=== PATIENT | male | born 2000 | race Caucasian/White ===

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

== ENCOUNTER 2023-09-14 17:45 | Emergency (ER) | payer OTHER, SELFPAY ==
[2023-09-14 17:52] VITALS: BP 152/93; PULSE 80; RESP 16; TEMP 36.7; O2SAT 100; BMI 24.6
--- NOTE | 2023-09-14 18:15 | DI.CT.S_ITS ---
PROCEDURE: CT HEAD/BRAIN WO CON INDICATIONS: headache with blurred vision, nausea TECHNIQUE: Noncontrast 4.5 mm thick angled axial sections acquired from the foramen magnum to the vertex, with coronal and sagittal reformats. For radiation dose reduction, the following was used: automated exposure control, adjustment of mA and/or kV according to patient size. COMPARISON: [facility], MR, MR ANGIO HEAD WO CON, 12/05/2021, 19:36. FINDINGS: Image quality: Diagnostic. CSF spaces: Basal cisterns are patent. No extra-axial fluid collections. Ventricles are normal in size and shape. Brain: No midline shift. No intracranial masses or hemorrhage. Anderson-white matter interface is normal. Skull and face: Calvarium and visualized facial bones are intact, without suspicious lesions. Sinuses: Visualized sinuses and mastoids are clear. IMPRESSION: No acute intracranial pathology. Dictated by: Dimas Lawrence M.D. on 09/14/2023 at 18:35 Approved by: Dimas Lawrence M.D. on 09/14/2023 at 18:35
--- NOTE | 2023-09-14 19:17 | ED_ITS ---
HPI - Headache General Chief Complaint: Headache Stated Complaint: Blurred vision, headache, nausea Time Seen by Provider: 09/14/23 18:14 Mode of arrival: Wheelchair History of Present Illness HPI Narrative: 22-year-old male with history of migraine headaches presents for headache. Started approximately 2pm and worsened in intensity. Tried to take ibuprofen but vomited. States he came in today because he was never had a headache like this. It blurred his vision and caused him concern. Patient states he has a history of migraines as a kid but the blurred vision is a new pattern for him. Has not seen his primary care doctor for headaches recently, however computer shows that patient was seen by Dr. Calderon in 2021 and underwent MRA imaging that was normal. Related Data Previous Rx's Medication Instructions Recorded sumatriptan succinate 25 mg tablet See Rx Instructions PO .COMPLEX 11/26/21 #14 tabs Allergies Allergy/AdvReac Type Severity Reaction Status Date / Time No Known Drug Allergies Allergy Verified 09/14/23 17:56 Review of Systems Review of Systems Narrative: Negative except as noted above Patient History Medical History Visual disturbance Headache Acne Migraine Redundant prepuce and phimosis (08/05/17) Functional heart murmur (08/05/17) Surgical History Retinal tear Family History Grandfather History of heart disease Grandfather Stroke Grandmother Cancer Diabetes mellitus History of heart disease Hyperlipidemia Hypertension Social History Smoking Status: Never smoker Smoking Status: Never smoker Substance Use Type: does not use Exam Initial Vital Signs Initial Vital Signs: Vital Signs Temperature 98.0 F 09/14/23 17:52 Pulse Rate 80 09/14/23 17:52 Respiratory Rate 16 09/14/23 17:52 Blood Pressure 152/93 H 09/14/23 17:52 Pulse Oximetry 100 09/14/23 17:52 Oxygen Delivery Method Room Air 09/14/23 17:52 Const: Awake, alert, uncomfortable, nontoxic Cardiac: regular rate, regular rhythm RESP: unlabored, clear bilaterally, no wheezing GI: Soft, nontender, nondistended, no rebound, no guarding Skin: Warm, Dry, intact, no rashes Neuro: AO x3, CN II-XII grossly intact, moves all extremities Course Orders Ordered: ED Orders 09/14/23 18:15 CT head/brain wo con Stat Discontinued Medications Acetaminophen (Acetaminophen 325 Mg Tablet) 975 mg PO NOW ONE Stop: 09/14/23 19:17 Diphenhydramine HCl (Diphenhydramine 50 Mg/Ml Vial) 50 mg IV NOW ONE Stop: 09/14/23 19:17 Sodium Chloride (Normal Saline 0.9%) 1,000 mls @ 1,000 mls/hr IV BOLUS ONE Stop: 09/14/23 20:15 Ketorolac Tromethamine (Ketorolac 30 Mg/Ml Vial) 15 mg IV NOW ONE Stop: 09/14/23 19:17 Metoclopramide HCl (Metoclopramide 10 Mg/2 Ml Inj) 10 mg IV NOW ONE Stop: 09/14/23 19:17 Vital Signs Vital signs: Vital Signs - 8 hr 09/14/23 17:52 Temperature 98.0 F Pulse Rate 80 Respiratory Rate 16 Blood Pressure 152/93 H Pulse Oximetry 100 Oxygen Delivery Method Room Air MDM - Headache Differential Diagnosis Differential diagnosis: Likely migraine, tension headache and subarachnoid hemorrhage Imaging Data CT scan - head: Radiologist's Impression: PROCEDURE: CT HEAD/BRAIN WO CON INDICATIONS: headache with blurred vision, nausea TECHNIQUE: Noncontrast 4.5 mm thick angled axial sections acquired from the foramen magnum to the vertex, with coronal and sagittal reformats. For radiation dose reduction, the following was used: automated exposure control, adjustment of mA and/or kV according to patient size. COMPARISON: [facility], MR, MR ANGIO HEAD WO CON, 12/05/2021, 19:36. FINDINGS: Image quality: Diagnostic. CSF spaces: Basal cisterns are patent. No extra-axial fluid collections. Ventricles are normal in size and shape. Brain: No midline shift. No intracranial masses or hemorrhage. Anderson-white matter interface is normal. Skull and face: Calvarium and visualized facial bones are intact, without suspicious lesions. Sinuses: Visualized sinuses and mastoids are clear. IMPRESSION: No acute intracranial pathology. Dictated by: Dimas Lawrence M.D. on 09/14/2023 at 18:35 Approved by: Dimas Lawrence M.D. on 09/14/2023 at 18:35 [facility] Narrative Medical decision making narrative: Patient with history of migraine headaches presenting for headache with change in migraine pattern. States that he was never had blurred vision previously. He was neurologically intact, able to ambulate without ataxia, no focal neurologic deficits. CT head negative for acute findings. Patient offered a migraine cocktail, however he refused, stating that as long as he knew that his brain was normal he would prefer to go home and recover there. He reports concern that if he has worsening migraines with blurred vision that it may impact his ability to work. History shows that patient was previously prescribed sumatriptan by his primary care doctor, however he states he never took this medication. Patient offered nausea medication if he has a migraine and can not keep medications down due to vomiting, however he declined. Patient states that he will follow up with his primary care doctor as well as an eye doctor. Discharge Plan Departure Patient Disposition: Home Clinical Impression: Migraine Instructions: DI for Migraine Activity Restrictions/Additional Instructions: You can take Tylenol and Motrin as needed for headache. Follow up with Dr. Lyon and the eye doctor as needed Prescriptions: No Action sumatriptan succinate 25 mg tablet See Rx Instructions PO .COMPLEX Qty: 14 0RF Rx Instructions: take 1 tab at onset of headache; if no relief may repeat 1 tab after at least 2 hrs; max = 4 tabs/24 hr PO Referrals: Alex Calderon MD [Primary Care Provider] - Stand Alone Forms: Patient Portal/API
== END 2023-09-14 20:11 | disposition home or self-care (01) ==
PROVIDERS: Emergency Provider Emergency Medicine; PCP Family Medicine
DX: G43.909 Migraine, unspecified, not intractable, without status migrainosus (principal); H53.8 Other visual disturbances
CPT/HCPCS: 70450; 99281; 99284